=== PATIENT | female | born 1930 | race Caucasian/White ===

== ENCOUNTER 2018-10-02 09:16 | Inpatient (IN) | payer MEDICARE ==
[~2018-10-02] VITALS: Ht 157.5 cm; Wt 44.5 kg
[~2018-10-02 09:16] MED LIST: CIPRO500 MG PO; DEXILANT60 MG PO; NORCO 5-325 TA1 EACH PO; PRILOSEC OTC20 MG PO; PROMETHAZINE HC25 M1 PO; Z.0.ALTACE10 MG PO; Z.0.NORVASC5 MG PO; Z.0.SYNTHROID100 MCG PO
[2018-10-02] MEDS ORDERED: SODIUM CHLORIDE 0.9% 500ML 500 ML IV ONE (11:30)
[2018-10-02] MEDS ORDERED: ONDANSETRON HCL 4 MG ORAL DISINTEGRATING TAB PO ONE (11:50)
[2018-10-02 12:20] LABS: BASOPHILS % 0.3 % (0.0-1.0); EOSINOPHILS % 0.3 % (0.0-6.0); HEMATOCRIT 34.8 % (34.2-44.1); LYMPHOCYTES # (AUTO) 0.5 (1.0-3.2); LYMPHOCYTES % 6.9 % (18.0-39.1); MEAN CORPUSCULAR HEMOGLOBIN 30.7 pg (28-32); MEAN CORPUSCULAR HGB CONC 34.5 g/dL (31-35); MONOCYTES # (AUTO) 0.5 (0.2-0.8); MONOCYTES % 6.2 % (4.4-11.3); NEUTROPHILS # (AUTO) 6.5 (2.1-6.9); NEUTROPHILS % 85.8 % (38.7-80.0); PLATELET COUNT 200 x10e3/uL (140-360); RED BLOOD COUNT 3.91 x10e6/uL (3.6-5.1); RED CELL DISTRIBUTION WIDTH 14.5 % (11.7-14.4)
[2018-10-02 12:24] LABS: PARTIAL THROMBOPLASTIN TIME 26.1 seconds (23.8-35.5)
[2018-10-02 12:31] LABS: INR 0.91; PROTHROMBIN TIME 13.1 seconds (11.9-14.5)
[2018-10-02 12:34] LABS: ALANINE AMINOTRANSFERASE 18 IU/L (0-55); ALBUMIN/GLOBULIN RATIO 1.3 (0.8-2.0); ALKALINE PHOSPHATASE 50 IU/L (40-150); AMYLASE 70 U/L (25-125); ANION GAP 15.9 mmol/L (8-16); BLOOD UREA NITROGEN 12 mg/dL (7-26); BUN/CREATININE RATIO 15 (6-25); CALCIUM 9.8 mg/dL (8.4-10.2); CARBON DIOXIDE 26 mmol/L (22-29); CHLORIDE 83 mmol/L (98-107); CREATINE KINASE 61 IU/L (29-168); CREATININE, SERUM 0.82 mg/dL (0.57-1.11); EST GLOMERULAR FILTRATION RATE > 60 ML/MIN (60-); GLUCOSE 121 mg/dL (74-118); LIPASE 13 U/L (8-78); MAGNESIUM 1.5 MG/DL (1.3-2.1); POTASSIUM 3.9 mmol/L (3.5-5.1); SODIUM 121 mmol/L (136-145)
[2018-10-02 12:48] LABS: LYMPHOCYTES % (MANUAL) 9 % (19-48); MONOCYTES % (MANUAL) 8 % (3.4-9.0); NEUTROPHILS % (MANUAL) 83 % (40-74); PLATELET ESTIMATE ADEQUATE; PLATELET MORPHOLOGY COMMENT NORMAL; RBC MORPHOLOGY COMMENT NORMAL
[2018-10-02 13:57] LABS: BILIRUBIN,URINE NEGATIVE (NEGATIVE); CLARITY,URINE SL CLOUDY (CLEAR); COLOR,URINE YELLOW (YELLOW); KETONES,URINE NEGATIVE (NEGATIVE); LEUKOCYTE ESTERASE ,URINE 1+ (NEGATIVE); NITRITE,URINE NEGATIVE (NEGATIVE); PROTEIN,URINE DIPSTICK NEGATIVE (NEGATIVE); URINE UROBILINOGEN 0.2 mg/dL (0.2 - 1)
[2018-10-02 14:00] LABS: BACTERIA,URINE MANY /HPF; EPITHELIAL CELLS,URINE FEW /LPF; WBC,URINE (MAN) >50 /HPF (0-5)
--- NOTE | 2018-10-02 14:13 | Diagnostic Imaging Report ---
EXAM: CT Abdomen and Pelvis WITH contrast INDICATION: ^nausea, vomiting, diarrhea ^[id number] ^1310 COMPARISON: Gallbladder ultrasound 02/08/2014 TECHNIQUE: Abdomen and pelvis were scanned utilizing a multidetector helical scanner from the lung base to the pubic symphysis after administration of IV contrast. Coronal and sagittal reformations were obtained. Routine protocol was performed. Scan was performed when during portal venous phase. IV CONTRAST: 100 mL of Isovue-370 ORAL CONTRAST: Water RADIATION DOSE: Total DLP: 209.8 mGy*cm Estimated effective dose: (DLP x 0.015 x size factor) mSv COMPLICATIONS: None FINDINGS: LINES and TUBES: None. LOWER THORAX: Mild subsegmental atelectasis in both lung bases. HEPATOBILIARY: No focal hepatic lesions. Mild dilatation of the common bile duct measuring 1.1 cm without calcifications may relate to prior cholecystectomy. No intrahepatic biliary duct dilatation. GALLBLADDER: Cholecystectomy. SPLEEN: No splenomegaly. PANCREAS: No focal masses or ductal dilatation. ADRENALS: No adrenal nodules KIDNEYS/URETERS: Stenosis of the right kidney which is inferior to the lateral aspect of the liver. Kidneys enhance symmetrically. No hydronephrosis. Few bilateral subcentimeter low-attenuation cortical renal cysts. No stones. GI TRACT: No abnormal distention, wall thickening, or evidence of bowel obstruction. Diverticulosis of the sigmoid colon with associated mild wall thickening and surrounding fat stranding suggestive of acute diverticulitis. Appendix is not visualized. PELVIC ORGANS/BLADDER: Unremarkable. LYMPH NODES: No lymphadenopathy. VESSELS: Tortuous abdominal aorta with associated mild scattered atherosclerotic calcifications. No aneurysm. PERITONEUM / RETROPERITONEUM: No free air or fluid. BONES: Levoscoliosis of the lumbar spine. Advanced multilevel degenerative changes of the lumbar spine. SOFT TISSUES: Unremarkable. IMPRESSION: Acute diverticulitis of the sigmoid colon. No abscess or drainable fluid collections. No free air. Recommend follow-up after treatment is completed. Signed by: Dr. Jane Adrian M.D. on 10/02/2018 2:10 PM
[2018-10-02] MEDS ORDERED: CEFEPIME HCL 1 GM VIAL IV SCH (14:30)
--- OUTSIDE RECORDS SUMMARY | 2018-10-02 14:38 | XMS REPORT ---
Author Author [facility] Address Unknown Phone Unavailable Care Team Providers Care Feather Trimmer Name Role Phone Carlo DEL REAL Unavailable Unavailable Problems This patient has no known problems. Allergies, Adverse Reactions, Alerts This patient has no known allergies or adverse reactions. Medications This patient has no known medications. Results Test Description Test Time Test Comments Text Results Atomic Results Result Comments CT ABDOMEN/PELVIS W 2018-10-02 14:03:00 [facility] [address] [address] Patient Name: FELICIA IQBAL MR #: [id number] : 1930 Age/Sex: 88/F Req #: [id number] Adm Physician: Ordered by: TAMEKA ROYAL CERTIFIED LEGAL SECRETARY SPECIALIST Report #: [id number] Location: ER Room/Bed: Procedure: [id number] CT/CT ABDOMEN/PELVIS W Exam Date: 10/02/18 Exam Time: 1310 REPORT STATUS: Signed EXAM: CT Abdomen and Pelvis WITH contrast INDICATIO N: nausea, vomiting, diarrhea [id number] COMPARISON: Gallbladder ultrasound 02/08/2014 TECHNIQUE: Abdomen and pelvis were scanned utilizing a multidetector helical scanner from the lung base to the pubic symphysis after administration of IV contrast. Coronal and sagittal reformations were obtained. Routine protocol was performed. Scan was performed when during portal venous phase. IV CONTRAST: 100 mL of Isovue-370 ORAL CONTRAST: Water RADIATION DOSE: Total DLP: 209.8 mGy*cm Estimated effective dose: (DLP x 0.015 x size factor) mSv COMPLICATIONS: None FINDINGS: LINES and TUBES: None. LOWER THORAX: Mild subsegmental atelectasis in both lung bases. HEPATOBILIARY: No focal hepatic lesions. Mild dilatation of the common bile duct measuring 1.1 cm without calcifications may relate to prior cholecystectomy. No intrahepatic biliary duct dilatation. GALLBLADDER: Cho lecystectomy. SPLEEN: No splenomegaly. PANCREAS: No focal masses or ductal dilatation. ADRENALS: No adrenal nodules KIDNEYS/URETERS: Stenosis of the right kidney which is inferior to the lateral aspect of the liver. Kidneys enhance symmetrically. No hydronephrosis. Few bilateral subcentimeter low-attenuation cortical renal cysts. No stones. GI TRACT: No abnormal distention, wall thickening, or evidence of bowel obstruction. Diverticulosis of the sigmoid colon with associated mild wall thickening and surrounding fat stranding suggestive of acute diverticulitis. Appendix is not visualized. PELVIC ORGANS/BLADDER: Unremarkable. LYMPH NODES: No lymphadenopathy. VESSELS: Tortuous abdominal aorta with associated mild scattered atherosclerotic calcifications. No aneurysm. PERITONEUM / RETROPERITONEUM: No free air or fluid. BONES: Levoscoliosis of the lumbar spine. Advanced multilevel degenerative changes of the lumbar spine. SOFT TISSUES: Unremarkable. IMPRESSION: Acute diverticulitis of the sigmoid colon. No abscess or drainable fluid collections. No free air. Recommend follow-up after treatment is completed. Signed by: Dr. Teo Resendiz M.D. on 10/02/2018 2:10 PM Dictated By: TEO RESENDIZ MD 1410 COPY TO: TAMEKA ROYAL NP
[2018-10-02] MEDS ORDERED: ONDANSETRON HCL INJ 2 MG/ML VIAL IV NR (15:00)
[2018-10-02] MEDS: SODIUM CHLORIDE 0.9% 1000ML 1,000 ML IV SCH (15:04)
[2018-10-02] MEDS: CEFEPIME 1GM/NS 0.9% 50 ML 50 ML IV SCH (15:05)
--- NOTE | 2018-10-02 15:17 | NUR ---
Report received and walking rounds complete. Pt A&O, pt resting in bed and in no apparent distress. Daughter at bedside and to stay overnight. All safety measures ensured, bed alarm on, and pt call more near. Addendum: 10/03/18 at 0737 by Therese Farrell RN note for 1717 not 1516
[2018-10-02 15:49] VITALS: BP 145/63
[2018-10-02 15:54] VITALS: BP 145/63
[2018-10-02 15:59] VITALS: BP 145/63
--- NOTE | 2018-10-02 16:01 | NUR ---
patient received from ER via WC. see admit assess. family at BS. vitals stable with no distress.
[2018-10-02] MEDS ORDERED: IOPAMIDOL 370 MG/ML 200 ML INFUS..BTL INJ ONE (17:12)
[2018-10-02] MEDS ORDERED: SODIUM CHLORIDE 0.9% 50ML 50 ML ONE (17:12)
[2018-10-02] MEDS: METRONIDAZOLE 500MG/NS 100ML IV SCH (18:20)
[2018-10-02 20:00] VITALS: BP 130/69
[2018-10-02 21:00] VITALS: BP 130/69
[2018-10-03] VITALS: BP 126/63
[2018-10-03] MEDS: SODIUM CHLORIDE 0.9% 1000ML 1,000 ML IV SCH (00:23)
[2018-10-03] MEDS: METRONIDAZOLE 500MG/NS 100ML IV SCH ×4 (00:26→18:23)
[2018-10-03] MEDS: CEFEPIME 1GM/NS 0.9% 50 ML 50 ML IV SCH ×2 (03:01→15:50)
[2018-10-03 04:00] VITALS: BP 135/76
[2018-10-03 05:43] LABS: BASOPHILS % 0.4 % (0.0-1.0); EOSINOPHILS # (AUTO) 0.2 (0.0-0.4); EOSINOPHILS % 2.9 % (0.0-6.0); HEMATOCRIT 29.5 % (34.2-44.1); HEMOGLOBIN 10.1 g/dL (12.0-16.0); LYMPHOCYTES # (AUTO) 1.2 (1.0-3.2); LYMPHOCYTES % 21.7 % (18.0-39.1); MEAN CORPUSCULAR HEMOGLOBIN 30.3 pg (28-32); MEAN CORPUSCULAR HGB CONC 34.2 g/dL (31-35); MEAN CORPUSCULAR VOLUME 88.6 fL (81-99); MONOCYTES # (AUTO) 0.6 (0.2-0.8); MONOCYTES % 10.4 % (4.4-11.3); NEUTROPHILS # (AUTO) 3.5 (2.1-6.9); NEUTROPHILS % 64.4 % (38.7-80.0); PLATELET COUNT 188 x10e3/uL (140-360); RED BLOOD COUNT 3.33 x10e6/uL (3.6-5.1); RED CELL DISTRIBUTION WIDTH 14.5 % (11.7-14.4)
[2018-10-03 06:03] LABS: ANION GAP 14.5 mmol/L (8-16); BLOOD UREA NITROGEN 10 mg/dL (7-26); BUN/CREATININE RATIO 12 (6-25); CALCIUM 8.7 mg/dL (8.4-10.2); CARBON DIOXIDE 25 mmol/L (22-29); CHLORIDE 89 mmol/L (98-107); CREATININE, SERUM 0.81 mg/dL (0.57-1.11); EST GLOMERULAR FILTRATION RATE > 60 ML/MIN (60-); GLUCOSE 86 mg/dL (74-118); POTASSIUM 3.5 mmol/L (3.5-5.1); SODIUM 125 mmol/L (136-145)
--- NOTE | 2018-10-03 07:36 | NUR ---
Report given to oncoming nurse
[2018-10-03 08:00] VITALS: BP 134/64
--- NOTE | 2018-10-03 09:07 | NUR ---
CASE MANAGEMENT INITIAL ASSESSMENT Appraiser Timber to bedside to discuss plan of care with patient/family. CM/SW role and care transitions discussed. Anticipated discharge plan discussed along with duration of care. CM/SW discussed patients right to make decisions in care. CM/SW work hours given. Patient lives: IN OWN HOUSE BY SELF Admit/Transfer: VIA ED FROM HOME POA/Emergency contact: DAUGHTER RAÚL [phone] Current/Previous Home Health: NONE PCP/Follow-up Care: AURELIO Current/Previous DME: NONE STATES GOES TO THE GYM 3 TIMES A WEEK AND WORKS OUT WITH THE [employer] Other Services: NA Employment Status: RETIRED Areas of Concerns: NONE Referral Needs: NONE Education Needs: NONE IMM/WORTHINGTON given and signed (if applicable): WORTHINGTON Goal for discharge: RETURN HOME INDEPENDENTLY CM/SW left business card at the bedside with contact information. Name and number was also written on the patients whiteboard. Patient verbalized understanding of discussion. CM will follow-up with ongoing discharge and transition of care needs.
[2018-10-03 12:23] VITALS: BP 139/65
--- NOTE | 2018-10-03 13:02 | Consultation ---
DATE OF CONSULTATION: October 03, 2018 RENAL CONSULTATION HISTORY OF PRESENT ILLNESS: This is a delightful 88-year-old lady who has been admitted with nausea, vomiting and diarrhea. She denies prior history of any diabetes, cancer or malignancy. She has developed some bilateral ankle swelling but that resolved by wearing stockings. She is currently lying supine. No apparent distress. A very thin-built female with poor muscle mass. Labs show sodium 125. Potassium 3.5. Creatinine 0.8. White count 5.4. Hemoglobin 10.1. INR 0.91. LFTs within normal range. SOCIAL HISTORY: Patient does not smoke or drink. FAMILY HISTORY: Significant for hypertension. ALLERGIES: TO SULFA. CURRENT MEDICATIONS: Cefepime, ondansetron, metronidazole. PHYSICAL EXAMINATION: GENERAL: Awake, alert, lying supine. No apparent distress. VITALS: Blood pressure 134/64. Pulse rate 92. Afebrile. Oxygen saturation 96%. HEAD AND NECK: Cornea clear. Oral mucosa moist. LUNGS: Relatively clear. No rales or rhonchi. HEART: S1, S2 audible. A 2/6 to 3/6 ejection systolic murmur heard over left sternal border. ABDOMEN: Otherwise soft, nontender. LOWER EXTREMITY EXAMINATION: Shows no edema. IMPRESSION: Hyponatremia. Etiology most likely appropriate release of ADH secondary to nausea and vomiting. Continue with IV fluid. Monitor patient's chemistries, electrolytes and uric acid osmolality. Send thyroid function tests. Please see orders. Job#: [id number] EV
[2018-10-03] MEDS: ONDANSETRON HCL INJ 2 MG/ML VIAL IV PRN (13:05)
[2018-10-03 14:44] LABS: FREE THYROXINE INDEX 3.7002 (1.4-3.8); THYROID STIMULATING HORMONE 0.09 uIU/mL (0.350-4.940)
[2018-10-03 16:29] VITALS: BP 148/65
[2018-10-03] MEDS: PROMETHAZINE 12.5MG/ NACL 0.9% 12.5 MG/50 ML BAG IV PRN (16:35)
[2018-10-03 20:00] VITALS: BP 148/65
--- NOTE | 2018-10-03 20:00 | NUR ---
INITIAL ASSESSMENT COMPLETE, PT IN BED, ALERT, NO TELE, FAMILY AT BEDSIDE, IV INTACT, VS STABLE, NO DISTRESS NOTED
[2018-10-04] VITALS (11 sets, daily range): BP systolic 121–159; BP diastolic 58–103
[2018-10-04] MEDS: ONDANSETRON HCL INJ 2 MG/ML VIAL IV PRN ×2 (00:25→12:00)
[2018-10-04] MEDS: CEFEPIME 1GM/NS 0.9% 50 ML 50 ML IV SCH (03:00)
[2018-10-04 05:26] LABS: ALANINE AMINOTRANSFERASE 15 IU/L (0-55); ALBUMIN 2.9 g/dL (3.5-5.0); ALBUMIN/GLOBULIN RATIO 1.3 (0.8-2.0); ALKALINE PHOSPHATASE 37 IU/L (40-150); ANION GAP 12.8 mmol/L (8-16); BLOOD UREA NITROGEN 8 mg/dL (7-26); BUN/CREATININE RATIO 10 (6-25); CALCIUM 8.1 mg/dL (8.4-10.2); CARBON DIOXIDE 23 mmol/L (22-29); CHLORIDE 86 mmol/L (98-107); EST GLOMERULAR FILTRATION RATE > 60 ML/MIN (60-); GLUCOSE 92 mg/dL (74-118)
[2018-10-04 05:40] LABS: POTASSIUM 2.8 mmol/L (3.5-5.1); SODIUM 119 mmol/L (136-145)
--- NOTE | 2018-10-04 05:48 | NUR ---
TWO CRITICAL LAB VALUES, SODIUM [address] ELLIS HERE, RELAYED INFORMATION, NEW ORDERS RECEIVED,
[2018-10-04] MEDS: METRONIDAZOLE 500MG/NS 100ML IV SCH ×4 (05:59→18:54)
[2018-10-04] MEDS ORDERED: POTASSIUM CHLORIDE 20MEQ/100ML 200 ML IV ONE ×3 (06:00→17:00)
--- NOTE | 2018-10-04 09:50 | NUR ---
Patient had a syncopal episode, Dr. Bosch made aware, orders given to consult cardiology.
[2018-10-04] MEDS: PROMETHAZINE 12.5MG/ NACL 0.9% 12.5 MG/50 ML BAG IV PRN (10:00)
[2018-10-04] MEDS ORDERED: POTASSIUM CHLORIDE 20 MEQ TAB CR PO NR (10:30)
[2018-10-04] MEDS ORDERED: KCL 20MEQ/.9 SOD CHL 1,000 ML IV SCH (11:15)
[2018-10-04] MEDS ORDERED: MAGNESIUM SULFATE 2GM/50ML 50 ML IV ONE (11:30)
[2018-10-04] MEDS: SODIUM CHLORIDE 1 GM TAB PO SCH ×2 (12:30→21:17)
[2018-10-04] MEDS ORDERED: SODIUM CHLORIDE 3% 200 ML IV ONE (12:45)
--- NOTE | 2018-10-04 12:45 | NUR ---
informed Dr. Adams about need for higher level of care for this patient due to need for hypertonic saline. he states patient does not need icu, but patient needs inpatient (has already given the order). Unfortunately there is not an imcu bed so patient is transferred to icu 191.
--- NOTE | 2018-10-04 14:04 | NUR ---
spoke to dr. salguero again, he states it is ok for ICU, also ok to transfer to IMCU when bed is available, and it is ok to give the hypertonic saline for now thru a quality iv
--- NOTE | 2018-10-04 16:18 | NUR ---
patient is alert, oriented, talking on phone, no neuro changes at this time. iv infusing comfortably
--- NOTE | 2018-10-04 19:15 | NUR ---
RECEIVED REPORT FROM RONDA TOLEDO COMING NURSE, REPORT GIVEN AT PT'S BEDSIDE, PT AAOX3 BREATHING EVEN AND UNLABORED, PT IN PROCESS OF GETTING PICC LINE INSERTION, DENIES PAIN AND DISCOMFORTS AT THIS TIME, DAUGHTER STEPPED OUT THE ROOM AND CAME BK IN, STATED SHE WAS GOING HM, PT INSTRUCTED TO CALL FOR HELP. AND VERBALIZED UNDERSTANDING.
--- NOTE | 2018-10-04 19:47 | Diagnostic Imaging Report ---
EXAMINATION: CHEST X-RAY LINE PLACEMENT COMPARISON: Chest x-ray 02/06/2014 INDICATION: PICC line placement DISCUSSION: Frontal view of the chest obtained at 1927 hours. HEART AND MEDIASTINUM: Stable mild cardiomegaly and aortic ectasia. LINES: Right PICC line terminates in the SVC LUNGS: Diffuse hyperinflation consistent with COPD. No pneumonia or pulmonary edema. There are calcifications throughout the tracheobronchial tree. PLEURA: Blunting of the right lateral costophrenic angle is stable. BONES AND SOFT TISSUES: No focal osseous lesion. The soft tissues are normal. IMPRESSION: 1. Right PICC line terminates in the SVC. No pneumothorax. 2. Stable pulmonary hyperinflation consistent with COPD. Right costophrenic angle blunting may be the result of pleural thickening or small pleural effusion. Signed by: Dr. Neno Smith MD on 10/04/2018 7:44 PM
--- NOTE | 2018-10-04 19:50 | NUR ---
DOCUMENTED OK TO USE PICC LINE BY PICC INSERTION TEAM NURSE.
[2018-10-04] MEDS: KCL 20MEQ/.9 SOD CHL 1,000 ML IV SCH (20:04)
--- NOTE | 2018-10-04 20:04 | Consultation ---
DATE OF CONSULTATION: October 04, 2018 This is an 88-year-old lady, who presented to the hospital because of 2 days' history of left lower quadrant abdominal pain, nausea, vomiting, and diarrhea. Patient denies any bleeding along with his problem. Her workup revealed that she has acute diverticulitis, but also significant hyponatremia. She said that her last colonoscopy was a long time ago. Her other medical problem is otherwise significant for history of thyroid disease, history of disease, previous cholecystectomy, cataract surgery. ALLERGIES: SULFA AND CODEINE. FAMILY HISTORY: Hypertension and heart disease. SOCIAL HISTORY: No alcohol use. CURRENT MEDICATION: Antibiotic and potassium. REVIEW OF SYSTEMS: At this point, she denies any chest pain, denies any shortness of breath. Denies any dysphagia or odynophagia. Denies any dysuria, hematuria, or any kind of syncopal episode. EXAMINATION GENERAL: Awake, alert, appears to be stable, not in acute distress at this point. VITAL SIGNS: Afebrile currently with stable vital signs. HEAD, EYES, EARS, NOSE AND THROAT: Normocephalic and atraumatic. Sclerae are anicteric. NECK: Supple. CARDIAC: Heart sounds regular. LUNGS: Clear. ABDOMEN: Soft. There is mild left lower quadrant tenderness. No rebound or mass. EXTREMITIES: No cyanosis, clubbing. LAB VALUES: Sodium 119, potassium 2.8. Hemoglobin of 10.1, hematocrit 28.5, WBC of 5.48. CAT SCAN: As mentioned before. IMPRESSIONS 1. Acute diverticulitis. 2. Hyponatremia. 3. History of thyroid disease. RECOMMENDATIONS: Continue current care at this point with antibiotic. Follow labs for the hyponatremia and patient will probably need to have colonoscopy later on as an outpatient in about 8-12 weeks. Job#: [id number] CQ cc:MD THADDEUS MERLOS MD
[2018-10-04] MEDS: LORAZEPAM 0.5 MG TAB PO PRN (21:55)
--- NOTE | 2018-10-04 23:00 | NUR ---
RESTING WELL WITH EYES CLOSED, PT EASY TO AWAKEN, DENIES ANY NAUSEA, VOMITING OR DIARRHEA. INFORMED PT TO CALL PRIOR TO GETTING OOB , CALL LIGHT WITHIN REACH, PT VERBALIZED UNDERSTANDING.
[2018-10-05] VITALS (14 sets, daily range): BP systolic 123–157; BP diastolic 61–105
[2018-10-05] MEDS: METRONIDAZOLE 500MG/NS 100ML IV SCH ×5 (01:04→23:34)
[2018-10-05] MEDS: KCL 20MEQ/.9 SOD CHL 1,000 ML IV SCH (03:45)
[2018-10-05] MEDS ORDERED: CEFTRIAXONE SOD 1 GM VIAL IV SCH ×2 (04:30→11:00)
--- NOTE | 2018-10-05 05:00 | NUR ---
ASSISTED UP OOB TO BEDSIDE COMMODEDR SCHNELL HERE TO ASSESS PTS STATUS. DR. ELLIS STATES TO PT THEY HAVE TO WORK ON GETTING (NA) LEVEL UP
[2018-10-05 05:18] LABS: ALANINE AMINOTRANSFERASE 14 IU/L (0-55); ALBUMIN 2.8 g/dL (3.5-5.0); ALBUMIN/GLOBULIN RATIO 1.4 (0.8-2.0); ALKALINE PHOSPHATASE 36 IU/L (40-150); ANION GAP 12.5 mmol/L (8-16); BLOOD UREA NITROGEN 5 mg/dL (7-26); BUN/CREATININE RATIO 7 (6-25); CALCIUM 7.6 mg/dL (8.4-10.2); CARBON DIOXIDE 20 mmol/L (22-29); CHLORIDE 100 mmol/L (98-107); CREATININE, SERUM 0.72 mg/dL (0.57-1.11); EST GLOMERULAR FILTRATION RATE > 60 ML/MIN (60-); GLUCOSE 78 mg/dL (74-118); MAGNESIUM 1.8 MG/DL (1.3-2.1); PHOSPHORUS 1.4 MG/DL (2.3-4.7)
[2018-10-05] MEDS: ONDANSETRON HCL INJ 2 MG/ML VIAL IV PRN (05:25)
[2018-10-05 05:37] LABS: POTASSIUM 5.5 mmol/L (3.5-5.1); SODIUM 127 mmol/L (136-145)
--- NOTE | 2018-10-05 06:15 | NUR ---
PAGED DR. CRONIN TO INFORM HIM OF POTASSIUM LEVEL 5.5, AND SODIUM LEVEL 127, UP FROM 119, IF NO CALL BACK WILL INFORM DAY NURSE TO PLEASE FOLLOW UP WITH DR. CRONIN.
--- NOTE | 2018-10-05 07:02 | NUR ---
DR. LU MADE AWARE OF K+ LEVEL 5.5 AND NA+ LEVEL 127, HE, DR. LU STATED OK, NO NEW ORDERS REPORTED TO RONDA
--- NOTE | 2018-10-05 07:53 | NUR ---
notified dr. salguero of Ala-Septic, orders chem 7 at 9
[2018-10-05 09:33] LABS: BLOOD UREA NITROGEN 5 mg/dL (7-26); BUN/CREATININE RATIO 6 (6-25); CALCIUM 8.5 mg/dL (8.4-10.2); CARBON DIOXIDE 23 mmol/L (22-29); CHLORIDE 95 mmol/L (98-107); CREATININE, SERUM 0.81 mg/dL (0.57-1.11); EST GLOMERULAR FILTRATION RATE > 60 ML/MIN (60-); GLUCOSE 125 mg/dL (74-118); SODIUM 126 mmol/L (136-145)
[2018-10-05] MEDS: SODIUM CHLORIDE 1 GM TAB PO SCH ×3 (09:55→20:47)
[2018-10-05] MEDS ORDERED: CEFTRIAXONE SOD 1 GM/NS 50 ML 50 ML IV SCH (11:00)
--- NOTE | 2018-10-05 13:39 | NUR ---
Nutrition Intervention Note RD Recommendation(s) for Physician: -Rec regular diet as medically appropriate -Rec Ensure Compact w each meal The patient meets criteria for MODERATE protein-calorie malnutrition. Plan of Care: RD following, monitoring for tolerance and adequacy, ONS rec Nutrition reason for involvement: BMI <18.5kg/m2 RD Assessment 10/05 Chart reviewed. 88yo F, who is admitted for 2 days' history of left lower quadrant abdominal pain, nausea, vomiting, and diarrhea. Her workup revealed acute diverticulitis and also significant hyponatremia. Full liquid diet day 2. Visited pt in the room. Daughter on bedside to provide hx. Per daughter, pt doesnt eat or drink enough at home for years. Her weight has been stable at 85lbs for the last 14years since her . Nausea was resolved after meds given. No vomiting episode noted. LBM 10/04, no diarrhea. No complain of chewing or swallowing difficulty. Pt reports feeling better. Entered food preferences into [facility]. Spoke with ISAIAH Tran to order Ensure compact w each meal. Will continue to monitor and follow. Principal Problems/Diagnoses: 1. Acute diverticulitis. 2. Hyponatremia. PMH: HTN, heart disease GI: LBM 10/05 Skin: intact Labs: (10/05) Na 126 L, BUN 5 L, Glucose 125 H Meds: Rocephin, NaCl, Zofran Ht: 62in Wt: 95lb BMI: 17.4 kg/m2 IBW: 110lb Malnutrition Evaluation (10/05/2018) The patient meets criteria for MODERATE protein-calorie malnutrition. Energy intake: <75% of estimated energy requirements for >3 months Weight loss: Stable weight Fat loss: Moderate/ severe some loss of fat over triceps, protrusion of clavicle, hollow around orbital region Muscle loss: Moderate/ Severe protrusion of clavicle and acromion process, depression of temporal Supporting Evidence: Fluid accumulation: Mild Moderate on fluid restriction Functional Status: no changes Nutrition Prescription (Diet Order): full liquid diet Estimated Nutritional Needs: Calories: 1170 1365kcal (30-35kcal/kg/d) Weight used : Actual BW Protein : 59 78g (1.5-2g/kg/d) Weight used: Actual BW Diet Adequacy: Not meeting calorie needs, Not meeting protein needs Diet Education Needs Assessment: Diet education not indicated. Nutrition Care Level: mod Nutrition Diagnosis: Inadequate oral intake related to current medical status as evidenced by PO <25% on full liquid since admission. Goal: Patient will meet 75-100% of estimated needs by follow up Progress: N/A Interventions: General healthful diet, Commercial beverage Monitoring/Evaluation: Total energy intake, Total protein intake, diet, Liquid supplement, Weight change Signed: Billie Mayfield MS, RD, LD
[2018-10-05] MEDS: SODIUM CHLORIDE 0.9% 1000ML 1,000 ML IV SCH (15:32)
--- NOTE | 2018-10-05 16:00 | NUR ---
Educated patient to please not take her home meds. daughter to take home her medications for now. note left on the chart for dr. ocasio address home meds
--- NOTE | 2018-10-05 17:04 | Consultation ---
DATE OF CONSULTATION: CARDIOLOGY CONSULTATION HISTORY OF PRESENT ILLNESS: This is an 88-year-old, pleasant, woman who presented to the emergency department with nausea, vomiting, diarrhea and a syncopal episode. We have been asked to evaluate the patient for her syncope. Evidently, the patient has had recurrent syncopal episodes approximately 18 months apart usually related to episodes of dehydration, nausea, vomiting and diarrhea. The patient was evaluated in [place] and was told she has a "valve problem." Upon arrival here, the patient was found to have severe hyponatremia, dehydration, and diverticulitis. She is currently feeling much better. Denies any chest pain, shortness of breath, palpitations. REVIEW OF SYSTEMS: A 12-point review of systems was conducted and was negative other than as stated above in the HPI. PAST MEDICAL HISTORY: Valvular heart disease, hypertension. FAMILY HISTORY: No premature coronary artery disease or sudden cardiac . SOCIAL HISTORY: No current illicit drug use, alcohol use or tobacco use. ALLERGIES: SULFA AND CODEINE. MEDICATIONS: See medication reconciliation form. PHYSICAL EXAMINATION VITAL SIGNS: Temperature 99, heart rate 102, oxygen saturation 100% on room air, blood pressure 123/68, respirations 14. GENERAL: A well-appearing, elderly woman lying comfortably in bed. HEAD: Normocephalic and atraumatic. EYES: The extraocular muscles are intact. Conjunctivae are clear. NECK: No jugular venous distention. No bruits. CARDIOVASCULAR: Tachycardic, regular rhythm with ectopy. No murmurs appreciated. LUNGS: Clear to auscultation. ABDOMEN: Soft, nontender and nondistended. EXTREMITIES: Thin. No edema. VASCULAR: 2+ pulses. SKIN: Warm, dry and intact. NEUROLOGIC: No focal deficits noted. Cranial nerves are grossly intact. PSYCHIATRIC: Normal mood and affect. CARDIOVASCULAR MEDICATIONS: Reviewed. LABORATORY DATA: Reviewed. IMPRESSION 1. Syncope and collapse. 2. Valvular heart disease. 3. Hyponatremia. 4. Vomiting and diarrhea. 5. Diverticulitis. 6. Urinary tract infection. RECOMMENDATIONS: From a cardiovascular standpoint, the patient appears relatively stable. Her syncope could be related to volume depletion with orthostasis. The patient reportedly had an episode similar in the past and was told that she had a valvular heart issue. Will check a 2-D echocardiogram although I do not hear any obvious sounds of aortic stenosis. Continue all other treatments per primary and critical care teams. Job#: [id number] TAMERA
--- NOTE | 2018-10-05 17:46 | NUR ---
notified dr. ocasio of high hr (150) when ambulating. also about patient taking meds/thyroid meds/labs. he states start metoprolol and hold thyroid meds. informed patient and family of this.
[2018-10-05] MEDS: METOPROLOL TARTRATE 25 MG TAB PO SCH ×2 (18:07→22:00)
--- NOTE | 2018-10-05 19:07 | NUR ---
CANCEL CDIFF TEST PER DR. SAAVEDRA
[2018-10-05] MEDS: LORAZEPAM 0.5 MG TAB PO PRN (21:55)
[2018-10-06] VITALS (15 sets, daily range): BP systolic 103–160; BP diastolic 45–101
[2018-10-06 04:49] LABS: HEMOGLOBIN 9.7 g/dL (12.0-16.0); MEAN CORPUSCULAR HEMOGLOBIN 30.8 pg (28-32); MEAN CORPUSCULAR HGB CONC 33.4 g/dL (31-35); MEAN CORPUSCULAR VOLUME 92.1 fL (81-99); PLATELET COUNT 171 x10e3/uL (140-360); RED BLOOD COUNT 3.15 x10e6/uL (3.6-5.1); RED CELL DISTRIBUTION WIDTH 15.1 % (11.7-14.4)
[2018-10-06 05:15] LABS: BLOOD UREA NITROGEN 6 mg/dL (7-26); BUN/CREATININE RATIO 8 (6-25); CALCIUM 8.4 mg/dL (8.4-10.2); CARBON DIOXIDE 21 mmol/L (22-29); CHLORIDE 98 mmol/L (98-107); CREATININE, SERUM 0.77 mg/dL (0.57-1.11); EST GLOMERULAR FILTRATION RATE > 60 ML/MIN (60-); GLUCOSE 85 mg/dL (74-118); SODIUM 128 mmol/L (136-145)
[2018-10-06] MEDS: SODIUM CHLORIDE 0.9% 1000ML 1,000 ML IV SCH (05:48)
[2018-10-06] MEDS: METOPROLOL TARTRATE 25 MG TAB PO SCH ×2 (05:48→14:16)
[2018-10-06] MEDS: METRONIDAZOLE 500MG/NS 100ML IV SCH ×4 (05:48→23:40)
--- NOTE | 2018-10-06 07:00 | NUR ---
BEDSIDE REPORT RECVD. ASSESSMENT COMPLETED AND RECORDED. VS RECORDED. PT VERBALIZES UNDERSTANDING AND CONSENT WITH CURRENT CARE. PT VERBALIZES DISAPPOINTMENT OF NOT GOING HOME.
[2018-10-06] MEDS: SODIUM CHLORIDE 1 GM TAB PO SCH ×3 (09:00→21:00)
--- NOTE | 2018-10-06 09:08 | NUR ---
PHAN UPDATED ON PT'S REQUEST TO BE DISCHARGED. PT VERBALLY AGITATED AND STATES WANTS TO GO HOME.
[2018-10-06] MEDS: CEFTRIAXONE SOD 1 GM/NS 50 ML 50 ML IV SCH (11:52)
--- NOTE | 2018-10-06 15:00 | NUR ---
DR BROWN MAKING ROUNDS. ECHO REORDERED. REQUEST TO GET EKG WHEN PT IS RAPID AFIB.
--- NOTE | 2018-10-06 16:42 | Progress Note ---
DATE: CARDIOLOGY PROGRESS NOTE SUBJECTIVE: Patient feels better. Denies any chest pain. Feels weak. Denies any palpitations. OBJECTIVE VITAL SIGNS: Temperature is 99.8, heart rate is 102, respirations are 16, blood pressure is 142/100. Oxygen saturation is 99% on room air. GENERAL: Well-appearing elderly woman. CARDIOVASCULAR: Regular rhythm, tachycardic with ectopy. LUNGS: Clear to auscultation. ABDOMEN: Soft, nontender. EXTREMITIES: No edema. MEDICATIONS: Reviewed. LABORATORY DATA: Reviewed. Telemetry monitoring revealed episodes of atrial flutter with 2:1 A-V block with a heart rate 150 and episodes of atrial fibrillation with rapid ventricular response. IMPRESSIONS 1. Syncope. 2. Atrial fibrillation/flutter, paroxysmal. 3. Hyponatremia. 4. Vomiting and diarrhea. 5. Diverticulitis. 6. Urinary tract infection. RECOMMENDATION: Patient was monitored overnight on telemetry. Episodes of atrial flutter and fibrillation were found. Currently patient has sinus tachycardia. Will continue to correct electrolytes, keep potassium greater than 4, magnesium greater than 2. Her thyroid studies showed reduced TSH, so her levothyroxine has been held. Will check a 2D echocardiogram. Will start anticoagulation given the patient is steady on her feet and fairly independent. Eliquis 2.5 b.i.d. Continue to titrate metoprolol for adequate heart rate control. Job#: [id number] WEN
--- NOTE | 2018-10-06 17:10 | NUR ---
DR CRONIN MAKING ROUNDS. ORDERS RECVD AND BEING COMPLETED. UPDATED ON STATUS. ECHO BEING DONE AT THIS TIME. REPORT GIVEN TO GENEVA. PT WILL TRANSFER TO ROOM 114 WITH TELE. CALLED DAUGHTER RAÚL AND LEFT A MESSAGE.
[2018-10-06] MEDS: METOPROLOL TARTRATE 50 MG TAB PO SCH (17:51)
[2018-10-06] MEDS: APIXAB 2.5 MG TABLET PO SCH (17:51)
--- NOTE | 2018-10-06 18:37 | NUR ---
RECEIVED PT TO FLOOR AA0X3. PT IS IN NO S.S OF DISTRESS. FAMILY IS AT BEDSIDE. PT IS ON TELE READING SR. WILL CONTINUE TO CARE FOR PT AT THIS TIME. SIDE RAILSX2, BED WHEELS LOCKED ,CALL LIGHT IS WITHIN EASY REACH, INSTRUCTED TO CALL FOR ASSISTANCE IF NEEDED
[2018-10-06] MEDS: LORAZEPAM 0.5 MG TAB PO PRN (20:32)
[2018-10-06] MEDS ORDERED: SODIUM CHLORIDE 0.9% 250ML 250 ML ONE (23:31)
[2018-10-07] VITALS (8 sets, daily range): BP systolic 124–151; BP diastolic 60–94
[2018-10-07] MEDS: METRONIDAZOLE 500MG/NS 100ML IV SCH ×4 (05:40→23:43)
[2018-10-07 06:07] LABS: BASOPHILS % 0.7 % (0.0-1.0); EOSINOPHILS # (AUTO) 0.3 (0.0-0.4); EOSINOPHILS % 4.9 % (0.0-6.0); HEMATOCRIT 28.1 % (34.2-44.1); HEMOGLOBIN 9.5 g/dL (12.0-16.0); LYMPHOCYTES # (AUTO) 0.8 (1.0-3.2); LYMPHOCYTES % 14.3 % (18.0-39.1); MEAN CORPUSCULAR HGB CONC 33.8 g/dL (31-35); MEAN CORPUSCULAR VOLUME 91.8 fL (81-99); MONOCYTES # (AUTO) 0.5 (0.2-0.8); MONOCYTES % 9.4 % (4.4-11.3); NEUTROPHILS # (AUTO) 4.1 (2.1-6.9); NEUTROPHILS % 70.4 % (38.7-80.0); PLATELET COUNT 169 x10e3/uL (140-360); RED BLOOD COUNT 3.06 x10e6/uL (3.6-5.1); RED CELL DISTRIBUTION WIDTH 15.4 % (11.7-14.4)
[2018-10-07 06:25] LABS: ANION GAP 12.5 mmol/L (8-16); BLOOD UREA NITROGEN 9 mg/dL (7-26); BUN/CREATININE RATIO 12 (6-25); CALCIUM 8.2 mg/dL (8.4-10.2); CARBON DIOXIDE 21 mmol/L (22-29); CHLORIDE 98 mmol/L (98-107); CREATININE, SERUM 0.75 mg/dL (0.57-1.11); EST GLOMERULAR FILTRATION RATE > 60 ML/MIN (60-); GLUCOSE 85 mg/dL (74-118); POTASSIUM 3.5 mmol/L (3.5-5.1); SODIUM 128 mmol/L (136-145)
--- NOTE | 2018-10-07 07:25 | NUR ---
REPORT GIVEN TO ONCOMING NURSE,WALKING ROUNDS MADE.PT RESTING IN BED WITH NO S/S OF DISTRESS NOTED.
[2018-10-07] MEDS: SODIUM CHLORIDE 1 GM TAB PO SCH ×3 (10:05→21:04)
[2018-10-07] MEDS: METOPROLOL TARTRATE 50 MG TAB PO SCH (10:05)
[2018-10-07] MEDS: CEFTRIAXONE SOD 1 GM/NS 50 ML 50 ML IV SCH (10:05)
[2018-10-07] MEDS: APIXAB 2.5 MG TABLET PO SCH ×2 (10:05→17:37)
--- NOTE | 2018-10-07 10:05 | NUR ---
assessment complete no distress noted,updated on poc vocied understanding, denies pain at this time, r picc sl, denies pain at this time, call light in reach will continue to monitor
--- NOTE | 2018-10-07 12:10 | NUR ---
PAGED DR NUÑEZ RE: EKG RESULTS AWAITING CALL BACK
--- NOTE | 2018-10-07 16:25 | Progress Note ---
DATE: October 07, 2018 CARDIOLOGY PROGRESS NOTE SUBJECTIVE: Patient overall feels better. Denies any chest pain, shortness of breath or palpitations. OBJECTIVE VITAL SIGNS: Temperature is 97.8 heart rate ranges from 80s to 100s. Blood pressure is 124/60. Oxygen saturation 99% on 2 liters nasal cannula. GENERAL: Well-appearing, elderly woman in no apparent distress. LUNGS: Diminished breath sounds in bilateral bases. CARDIOVASCULAR: Irregularly irregular with occasional tachycardia. ABDOMEN: Soft, nontender. EXTREMITIES: No edema. CARDIOVASCULAR MEDICATIONS: Reviewed. LABORATORY DATA: Hemoglobin 9.5, creatinine is 0.75. Telemetry monitoring revealed atrial fibrillation/flutter with variable response with episodes of tachycardia. IMPRESSION: 1. Syncope. 2. Hyponatremia. 3. Dehydration. 4. Atrial fibrillation/flutter. 5. Nausea, vomiting and diarrhea. 6. Diverticulitis. 7. Urinary tract infection. PLAN: Patient still has episodes of tachycardia. Will increase metoprolol for better heart rate control. She has been started on Eliquis 2.5 mg b.i.d.. A lower dose is being used due to her advanced age and low body weight. Her 2-D echocardiogram today showed mildly reduced systolic function approximately 45%. She also has moderate tricuspid regurgitation. Otherwise continue current infectious treatment per primary team. Her sodium is coming up and will likely need to be normalized prior to discharge. Job#: [id number]
[2018-10-07] MEDS ORDERED: METOPROLOL TARTRATE 50 MG TAB PO SCH (17:00)
[2018-10-07] MEDS ORDERED: POTASSIUM CHLORIDE 20 MEQ TAB CR PO STA (18:41)
[2018-10-07] MEDS ORDERED: FUROSEMIDE 40 MG TAB PO STA (18:41)
[2018-10-07] MEDS: LORAZEPAM 0.5 MG TAB PO PRN (20:29)
[2018-10-08] VITALS: BP 151/89
[2018-10-08 04:00] VITALS: BP 147/70
[2018-10-08] MEDS: METRONIDAZOLE 500MG/NS 100ML IV SCH ×2 (05:32→12:28)
[2018-10-08] MEDS ORDERED: METOPROLOL TARTRATE INJ 1 MG/ML VIAL IV ONE (06:15)
--- NOTE | 2018-10-08 06:18 | NUR ---
AMIRA AND SPOKE WITH DR HOOVER REPORTED THAT PT IS AFIB WITH HR IN THE 140s.N/O'S RECEIVED.
--- NOTE | 2018-10-08 06:30 | NUR ---
DR OZUNA IN UNIT COVERING FOR DR ELLIS,DR OZUNA NOTIFIED ABOUT PT RUNNING AFIB WITH HR IN THE 140s,ALSO NOTIFIED DR OZUNA OF THE ORDERS RECEIVED FROM DR HOOVER.NO NEW ORDERS RECEIVED FROM DR OZUNA.
--- NOTE | 2018-10-08 06:47 | NUR ---
PT RESTING IN BED.DENIES CHEST PAIN/SOB.RESPIRATIONS EVEN/NON LABORED.PT IS RUNNING AFIB HR 104.
--- NOTE | 2018-10-08 07:04 | Progress Note ---
DATE: SUBJECTIVE: This patient is here for acute diverticulitis, hyponatremia, history of syncope, atrial fibrillation, and flutter. The patient is currently doing well, wants to go home. No complaints. Bowel movements are normal. No abdominal pain. No chest pain. No shortness of breath. MEDICATIONS: She is taking are Flagyl 500 mg q.6 hours, she is on sodium chloride 2 grams 3 times a day, lorazepam 0.5 mg q.6 hours as needed, metoprolol 75 mg twice a day, apixaban 2.5 mg twice a day, Rocephin q.24 hours 1 gram and she is also on Zofran as needed and furosemide 20 mg. OBJECTIVE VITAL SIGNS: Temperature is 98.2, pulse of 100, respiration of 18, and blood pressure is 151/81. HEENT: Normocephalic, atraumatic. Pupils are reactive to light and accommodation. CVS: S1, S2 irregular. ABDOMEN: Nontender, nondistended, soft, and scaphoid. EXTREMITIES: No clubbing, no cyanosis, and no edema. ASSESSMENT: Acute diverticulitis, the patient is currently on antibiotics day 7-8, syncopal episode, episodes of tachycardia, hyponatremia, atrial fibrillation, and urinary tract infection. The patient's microbiology did show E. coli sensitive to Rocephin. PLAN: To continue with Rocephin. The patient has been on sodium chloride tablets 3 times a day for hyponatremia, we will continue that. The patient's tachycardia is being monitored by beta-blockade. The patient is on Eliquis twice a day for atrial fibrillation. As the patient was on levothyroxine which has not been continued, we will recheck her thyroid. For further recommendations and clinical course, we will continue the patient along with other consultants. For any further information, look in the chart. Job#: [id number] PSO
[2018-10-08 07:07] LABS: BASOPHILS # (AUTO) 0.1 (0.0-0.1); BASOPHILS % 0.9 % (0.0-1.0); EOSINOPHILS # (AUTO) 0.4 (0.0-0.4); EOSINOPHILS % 6.5 % (0.0-6.0); HEMATOCRIT 28.9 % (34.2-44.1); HEMOGLOBIN 9.7 g/dL (12.0-16.0); LYMPHOCYTES # (AUTO) 0.9 (1.0-3.2); LYMPHOCYTES % 16.8 % (18.0-39.1); MEAN CORPUSCULAR HEMOGLOBIN 30.7 pg (28-32); MEAN CORPUSCULAR HGB CONC 33.6 g/dL (31-35); MEAN CORPUSCULAR VOLUME 91.5 fL (81-99); MONOCYTES # (AUTO) 0.5 (0.2-0.8); MONOCYTES % 8.3 % (4.4-11.3); NEUTROPHILS # (AUTO) 3.7 (2.1-6.9); NEUTROPHILS % 67.1 % (38.7-80.0); PLATELET COUNT 194 x10e3/uL (140-360); RED BLOOD COUNT 3.16 x10e6/uL (3.6-5.1); RED CELL DISTRIBUTION WIDTH 15.4 % (11.7-14.4)
--- NOTE | 2018-10-08 07:10 | NUR ---
REPORT GIVEN TO ONCOMING NURSE.WALKING ROUNDS MADE.PT RESTING IN BED WITH NO S/S OF DISTRESS.
[2018-10-08 07:18] LABS: ALANINE AMINOTRANSFERASE 15 IU/L (0-55); ALBUMIN 2.8 g/dL (3.5-5.0); ALBUMIN/GLOBULIN RATIO 1.2 (0.8-2.0); ALKALINE PHOSPHATASE 37 IU/L (40-150); ANION GAP 14.6 mmol/L (8-16); BLOOD UREA NITROGEN 11 mg/dL (7-26); BUN/CREATININE RATIO 14 (6-25); CALCIUM 8.3 mg/dL (8.4-10.2); CARBON DIOXIDE 22 mmol/L (22-29); CHLORIDE 100 mmol/L (98-107); CREATININE, SERUM 0.78 mg/dL (0.57-1.11); EST GLOMERULAR FILTRATION RATE > 60 ML/MIN (60-); GLUCOSE 88 mg/dL (74-118); POTASSIUM 3.6 mmol/L (3.5-5.1); SODIUM 133 mmol/L (136-145)
[2018-10-08 07:23] LABS: FREE THYROXINE INDEX 2.6177 (1.4-3.8); THYROID STIMULATING HORMONE 0.485 uIU/mL (0.350-4.940)
[2018-10-08 09:00] VITALS: BP 151/84
[2018-10-08] MEDS: METOPROLOL TARTRATE 50 MG TAB PO SCH ×2 (09:00→16:00)
[2018-10-08] MEDS: APIXAB 2.5 MG TABLET PO SCH ×2 (09:00→16:00)
[2018-10-08] MEDS: SODIUM CHLORIDE 1 GM TAB PO SCH (09:00)
[2018-10-08] MEDS: CEFTRIAXONE SOD 1 GM/NS 50 ML 50 ML IV SCH (09:00)
[2018-10-08] MEDS ORDERED: FUROSEMIDE 20 MG TAB PO SCH (09:00)
--- NOTE | 2018-10-08 09:00 | NUR ---
ASSESSMENT COMPLETE NO DISTRESS NOTED,UPDATED ON POC VOICED UNDERSTANDING, DENIES PAIN AT THIS TIME, R PICC NO SS OF INFILTRATION NOTED, NO OTHER CO VOICED CALL LIGHT IN REACH WILL CONTINUE OT MONITOR
[2018-10-08 09:09] VITALS: BP 151/84
[2018-10-08] MEDS ORDERED: DIGOXIN 0.125 MG TAB PO SCH (12:45)
--- NOTE | 2018-10-08 13:12 | Progress Note ---
DATE: October 08, 2018 CARDIOLOGY PROGRESS NOTE SUBJECTIVE: Patient denies chest pain or shortness of breath. She reports she walked around with her daughter without any symptoms. OBJECTIVE VITAL SIGNS: Temperature 98.3 degrees, pulse 112, respiratory rate 20, blood pressure 151/84, oxygen saturation 97% on room air. GENERAL: Frail, elderly woman, no acute distress, awake and alert. LUNGS: Clear to auscultation bilaterally. No wheezes or crackles. CARDIOVASCULAR: Irregularly irregular. No murmur. Normal S1, S2. ABDOMEN: Soft, nontender. EXTREMITIES: 1+ pitting edema at the ankles. TELEMETRY: Atrial flutter. LABORATORY DATA: WBC 5.5, hemoglobin 9.7, hematocrit 28.9, platelets 194. Sodium 133, potassium 3.6, chloride 100, CO2 of 22, BUN 11, creatinine 0.78. IMPRESSION 1. Syncope. 2. Hyponatremia, improving. 3. Dehydration. 4. Atrial fibrillation/flutter. 5. Urinary tract infection. 6. Diverticulitis. RECOMMENDATIONS: Patient remains in atrial flutter with episodes of rapid ventricular response. Add digoxin. Continue Eliquis for CVA prophylaxis. Echocardiogram demonstrated mildly reduced systolic function with moderate tricuspid regurgitation. Continue current cardiac medications otherwise. Antibiotics per primary service. Thank you for this consult. We will continue to follow. Job#: [id number]
[2018-10-08 13:18] VITALS: BP 188/73
[2018-10-08] MEDS ORDERED: METOPROLOL SUCC50 MG PO (15:04)
[2018-10-08] MEDS ORDERED: FUROSEMIDE40 MG PO (15:05)
[2018-10-08] MEDS ORDERED: ELIQUIS PO (15:06)
== END 2018-10-08 16:10 | disposition home or self-care (01) | DRG 690 ==
LOC: ER 09:16 → ERHOLD 14:35 → IMCU 15:39 → OBSVTOIN 10-04 11:20 → ICU 10-04 13:10 → MED/SURG 10-06 18:21
PROVIDERS: ADMIT Internal Medicine; ATTEND Internal Medicine
DX: N30.01 Acute cystitis with hematuria (principal); K57.32 Diverticulitis of large intestine without perforation or abscess without bleeding; I38 Endocarditis, valve unspecified; E22.2 Syndrome of inappropriate secretion of antidiuretic hormone; E44.0 Moderate protein-calorie malnutrition; Z68.1 Body mass index [BMI] 19.9 or less, adult; K21.9 Gastro-esophageal reflux disease without esophagitis; Z88.5 Allergy status to narcotic agent; Z88.2 Allergy status to sulfonamides; Z82.49 Family history of ischemic heart disease and other diseases of the circulatory system; R55 Syncope and collapse; E86.0 Dehydration; D64.9 Anemia, unspecified; R00.0 Tachycardia, unspecified; I48.0 Paroxysmal atrial fibrillation; B96.20 Unspecified Escherichia coli [E. coli] as the cause of diseases classified elsewhere; I07.1 Rheumatic tricuspid insufficiency
CPT/HCPCS: 36415; 36569; 71045; 74177; 80048; 80053; 81001; 82150; 82550; 82553; 83605; 83690; 83735; 84100; 84436; 84443; 84479; 84484; 84550; 85007; 85025; 85027; 85610; 85730; 87040; 87086; 87186; 93005; 93306; 93970; 99284; G0378; J0692; J0696; J2405; J2550; J3475; J3480; J7030; J7040; J7050; Q9967

== ENCOUNTER 2018-11-23 09:32 | Observation (INO) | payer MEDICARE ==
[~2018-11-23] VITALS: Ht 157.5 cm; Wt 40.8 kg
[~2018-11-23 09:32] MED LIST changes: +ELIQUIS PO; +FUROSEMIDE40 MG PO; +METOPROLOL SUCC50 MG PO
[2018-11-23] MEDS ORDERED: FUROSEMIDE INJ 10 MG/ML 4 ML VIAL IV ONE (11:00)
[2018-11-23 11:13] LABS: BASOPHILS # (AUTO) 0.1 (0.0-0.1); BASOPHILS % 1.2 % (0.0-1.0); EOSINOPHILS # (AUTO) 0.2 (0.0-0.4); EOSINOPHILS % 3.3 % (0.0-6.0); HEMATOCRIT 31.6 % (34.2-44.1); HEMOGLOBIN 10.1 g/dL (12.0-16.0); LYMPHOCYTES # (AUTO) 1.2 (1.0-3.2); LYMPHOCYTES % 19.5 % (18.0-39.1); MEAN CORPUSCULAR VOLUME 93.8 fL (81-99); MONOCYTES # (AUTO) 0.5 (0.2-0.8); MONOCYTES % 8.9 % (4.4-11.3); NEUTROPHILS % 66.8 % (38.7-80.0); PLATELET COUNT 221 x10e3/uL (140-360); RED BLOOD COUNT 3.37 x10e6/uL (3.6-5.1); RED CELL DISTRIBUTION WIDTH 16.1 % (11.7-14.4)
[2018-11-23 11:34] LABS: ALBUMIN 3.6 g/dL (3.5-5.0); ALBUMIN/GLOBULIN RATIO 1.3 (0.8-2.0); CALCIUM 9.4 mg/dL (8.4-10.2); CREATININE, SERUM 1.22 mg/dL (0.57-1.11)
[2018-11-23 11:36] LABS: BILIRUBIN,URINE NEGATIVE (NEGATIVE); CLARITY,URINE HAZY (CLEAR); COLOR,URINE YELLOW (YELLOW); KETONES,URINE NEGATIVE (NEGATIVE); LEUKOCYTE ESTERASE ,URINE TRACE (NEGATIVE); NITRITE,URINE NEGATIVE (NEGATIVE); PROTEIN,URINE DIPSTICK NEGATIVE (NEGATIVE); URINE UROBILINOGEN 0.2 mg/dL (0.2 - 1); WBC,URINE (MAN) 21-50 /HPF (0-5)
[2018-11-23 11:37] LABS: BACTERIA,URINE RARE /HPF; EPITHELIAL CELLS,URINE RARE /LPF; RBC,URINE 0-5 /HPF (0-5); TRANSITIONAL EPI CELLS,URINE RARE
[2018-11-23 11:41] LABS: CREATINE KINASE MB 0.8 ng/mL (0-5.0)
[2018-11-23] MEDS ORDERED: CEFTRIAXONE SOD 1 GM/NS 50 ML 50 ML IV ONE (12:00)
--- NOTE | 2018-11-23 12:08 | Diagnostic Imaging Report ---
EXAMINATION: CHEST SINGLE (PORTABLE) COMPARISON: Chest radiograph 10/04/18. INDICATION: Dehydration, weakness, history of UTI DISCUSSION: LINES: Interval removal of right-sided PICC. LUNGS/PLEURA: Emphysematous changes of the lung. There are hazy and patchy opacities at the bilateral lung bases. Possible small right and trace left pleural effusion. Mild central vascular congestion without pulmonary edema. There are calcifications throughout the tracheobronchial tree. HEART AND MEDIASTINUM: Unchanged mild enlargement of the cardiomediastinal silhouette. Atherosclerotic calcifications of the thoracic aorta. BONES AND SOFT TISSUES: No acute radiographic abnormality. IMPRESSION: Patchy opacities at the lung bases could represent atelectasis or pneumonia in the appropriate clinical context. Possible small right and trace left pleural effusion. Central vascular congestion without pulmonary edema. Signed by: Dr. Flora Munoz MD on 11/23/2018 12:05 PM
[2018-11-23] MEDS ORDERED: ASPIRIN 81 MG CHEW TAB PO ONE (12:15)
--- NOTE | 2018-11-23 18:03 | NUR ---
Recvd patient from ER, A/Ox2-3, assisted her to bed, on Tele, not in any distress, denies any pain, Dr asim Fabian here aware about consult. her caregiver at bed side
[2018-11-23 18:25] VITALS: BP 153/85
[2018-11-23 19:00] VITALS: BP 153/85
[2018-11-23 19:45] LABS: CHOL/HDL RATIO 2.3 (3.0-3.6)
[2018-11-23 20:00] VITALS: BP 179/81
[2018-11-23 20:05] LABS: THYROID STIMULATING HORMONE 2.124 uIU/mL (0.350-4.940)
[2018-11-23 21:33] LABS: CREATINE KINASE MB 0.7 ng/mL (0-5.0)
--- NOTE | 2018-11-23 22:32 | NUR ---
History and Physical PCP cc: leg edema HPI: 88yoF, with hx Systolic CHF lVEF 45% in 09/2018, now developed leg edema, worsening, went to ED. No sob/cp. PMH: HTN, valvular heart ds, PAF, diverticulosis, UTI, syncope, systolic CHF LVEF 45% in 09/2018, Moderate TR, anorexia PSHx: cholecystectomy, hysterectomy Allergies; see emr FH/SH: ; no cigs/illicits/etoh Meds; see MAR ROS: no f/c/s/N/V/D/SUMMERS/vision changes/skin rash/back pain v/s; rev'd PE: tired appearing anicteric ns1s2 mod bs soft nt nd B/L LEG EDEMA, R>L. skin dry n. affect a&ox3; hernandez labs/meds; revd A/P: 88yoF AECHF-systolic B/L pleural effusion DWIGHT due to ATN UTI Underweight state Hypothyroidism PAF PLAN 1.diurese 2.AV blockade 3.IV abx; f/u cx 4.Synthroid 5.AC and pepcid dispo: f/u I/O. Abhay Umaña MD, PhD.
--- NOTE | 2018-11-23 23:33 | Consultation ---
DATE OF CONSULTATION: November 23, 2018 CARDIOLOGY CONSULT NOTE REASON FOR CONSULT: Atrial fibrillation, atrial flutter, lower extremity edema. CHIEF COMPLAINT: Lower extremity edema. HPI: Patient is an 88-year-old female, history of AFib, A-flutter, hypertension, hyperlipidemia, who was recently admitted to the hospital with severe hyponatremia and AFib with RVR as well as a syncopal episode. Full workup was done. Patient was started on medications for rate control of her atrial fibrillation, started on apixaban 2.5 mg twice a day for her atrial fibrillation. She has been okay at home overall except for some hemorrhoidal bleeding due to her anticoagulation for which she was referred to GI. She was noted to have right lower extremity edema by her primary care doctor today and she was sent to the hospital for workup of a possible DVT. She denies any chest pain, shortness of breath, is quite upset, and wants to go home. REVIEW OF SYSTEMS: As above, otherwise negative. PAST MEDICAL HISTORY: 1. AFib. 2. Hypertension. 3. Hyperlipidemia. 4. Hyponatremia. SOCIAL HISTORY: The patient does not smoke, drink, or abuse drugs. FAMILY HISTORY: Noncontributory. OUTPATIENT MEDICATIONS: Reviewed. OBJECTIVE: VITAL SIGNS: Temperature 97.5, pulse 87, respiratory rate 14, blood pressure 174/96, satting 100% on nasal cannula. GENERAL: Elderly thin female, well developed, well nourished, in no acute distress. CARDIOVASCULAR: Regular rate and rhythm. No murmurs, rubs, or gallops. Palpable carotid pulses. Palpable radial pulses. LUNGS: Clear to auscultation bilaterally. ABDOMEN: Soft, nontender, nondistended. NEURO AND PSYCH: Alert and oriented to person, place, and time. Normal affect. INPATIENT MEDICATIONS: Reviewed. LABORATORY DATA: Reviewed. IMAGING DATA: Reviewed. Lower extremity Doppler is pending. ASSESSMENT: 1. History of atrial fibrillation, on anticoagulation. 2. Hypertension. 3. Hyperlipidemia. 4. Lower extremity swelling. PLAN: BNP is elevated. Repeat another echo. Continue home medications for rate control. Continue apixaban 2.5 mg b.i.d. Will await results of lower extremity venous ultrasound. Treatment and workup of possible UTI per primary team. Thank you for this consult. Will continue to follow. Job#: [id number]
[2018-11-24] VITALS (7 sets, daily range): BP systolic 127–157; BP diastolic 60–90
[2018-11-24 05:36] LABS: BASOPHILS # (AUTO) 0.1 (0.0-0.1); BASOPHILS % 1.1 % (0.0-1.0); EOSINOPHILS # (AUTO) 0.3 (0.0-0.4); EOSINOPHILS % 3.7 % (0.0-6.0); HEMATOCRIT 31.3 % (34.2-44.1); HEMOGLOBIN 10.3 g/dL (12.0-16.0); LYMPHOCYTES # (AUTO) 1.1 (1.0-3.2); LYMPHOCYTES % 14.5 % (18.0-39.1); MEAN CORPUSCULAR HEMOGLOBIN 30.1 pg (28-32); MEAN CORPUSCULAR HGB CONC 32.9 g/dL (31-35); MEAN CORPUSCULAR VOLUME 91.5 fL (81-99); MONOCYTES # (AUTO) 0.6 (0.2-0.8); MONOCYTES % 7.6 % (4.4-11.3); NEUTROPHILS # (AUTO) 5.5 (2.1-6.9); NEUTROPHILS % 72.8 % (38.7-80.0); PLATELET COUNT 276 x10e3/uL (140-360); RED BLOOD COUNT 3.42 x10e6/uL (3.6-5.1); RED CELL DISTRIBUTION WIDTH 16.2 % (11.7-14.4)
[2018-11-24 05:53] LABS: ANION GAP 15.7 mmol/L (8-16); CALCIUM 9.1 mg/dL (8.4-10.2); CREATININE, SERUM 1.1 mg/dL (0.57-1.11); POTASSIUM 3.7 mmol/L (3.5-5.1)
[2018-11-24 06:18] LABS: CREATINE KINASE MB 0.6 ng/mL (0-5.0)
[2018-11-24] MEDS: LEVOTHYROXINE SODIUM 100 MCG TAB PO SCH (07:20)
[2018-11-24] MEDS: FAMOTIDINE 20 MG TAB PO SCH ×2 (07:30→17:00)
[2018-11-24] MEDS ORDERED: NON-FORMULARY MEDICATION (Omeprazole Magnesium (Prilosec Otc) 20 MG) PO SCH (07:30)
--- NOTE | 2018-11-24 08:19 | NUR ---
Shift reports and rounds completed.V/S reviewed. Pt stable and no complaints or concerns at this time. Dr Fitzgerald on unit and notified of consult for irregular urinary bladder per CT, Will see.
--- NOTE | 2018-11-24 08:36 | NUR ---
IM- Progress Note O/N; no events; less edema ROS: no f/c/s/N/V/D/SUMMERS/vision changes/skin rash/back pain v/s; rev'd PE: tired appearing anicteric ns1s2 mod bs soft nt nd B/L LEG EDEMA, R>L. skin dry n. affect a&ox3; hernandez labs/meds; revd A/P: 88yoF AECHF-systolic B/L pleural effusion DWIGHT due to ATN UTI Underweight state Hypothyroidism PAF PLAN 1.diurese 2.AV blockade 3.IV abx; f/u cx 4.Synthroid 5.AC and pepcid dispo: f/u I/O. 2/ edema in legs better, renal fn beginning to improve; GFR was >60 in 2018. Keep hospitalized and reassess tomorrow; f/u urine cx. feeling better; Abhay Umaña MD, PhD.
[2018-11-24] MEDS ORDERED: NON-FORMULARY MEDICATION ([Eliquis] 2.5 MG) PO SCH (09:00)
[2018-11-24] MEDS: PANTOPRAZOLE SOD 40 MG TABEC PO SCH (09:30)
[2018-11-24] MEDS: APIXAB 2.5 MG TABLET PO SCH ×2 (10:17→17:00)
[2018-11-24] MEDS: METOPROLOL SUCCINATE 50 MG TAB XL PO SCH (10:17)
[2018-11-24] MEDS: CEFTRIAXONE SOD 1 GM/NS 50 ML 50 ML IV SCH (10:17)
--- NOTE | 2018-11-24 14:51 | NUR ---
SOCIAL WORK INITIAL ASSESSMENT Land Clearer to bedside to discuss plan of care with patient/family. CM/SW role and care transitions discussed. Anticipated discharge plan discussed along with duration of care. CM/SW discussed patients right to make decisions in care. CM/SW work hours given. Patient lives: LIVES IN OWN HOUSE BY SELF Admit/Transfer: VIA ED FROM HOME POA/Emergency contact: DAUGHTER RAÚL LAZARO [phone] PROVIDER IS ROSIE FAITH [phone] Current/Previous Home Health: HAS 40 HOURS PROVIDER PRIVATE PAID PCP/Follow-up Care: THADDEUS BUENO Current/Previous DME: NONE Other Services: NONE Employment Status: RETIRED Areas of Concerns: NONE Referral Needs: NONE Education Needs: NONE IMM/[place] given and signed (if applicable): UPON ADMISSION Goal for discharge: RETURN HOME CM/SW left business card at the bedside with contact information. Name and number was also written on the patients whiteboard. Patient verbalized understanding of discussion. CM will follow-up with ongoing discharge and transition of care needs.
--- NOTE | 2018-11-24 15:46 | NUR ---
Paged Dr Monroy, spoke with Gretchen. Pt requesting update on POC and treatment.
--- NOTE | 2018-11-24 16:31 | NUR ---
Spoke with Dr Monroy, notified that patient requesting update. Dr Monroy will follow up with cargo and container inspector pipeliner to follow up with patient.
--- NOTE | 2018-11-24 17:38 | NUR ---
Called Dr Umaña to notify that Dr Monroy cleared for discharge and follow up out patient tomorrow. Admitted for CHF and UTI, getting rochephin 1 gm iv Q 24 hrs, would like to order ABT for home? Will f/u after reviewing chat.
--- NOTE | 2018-11-24 17:45 | NUR ---
Rounds by jewel bearing broacher and read venous doppler and it was normal, he contacted attending and notified patient cleared for discharge. Spoke with attending and will be in to see patient as urine culture still pending.
--- NOTE | 2018-11-24 18:00 | NUR ---
Nutrition Screen Note RD Recommendation for Physician: Continue diet as ordered Plan of Care: RD following, monitoring for adequacy and tolerance Nutrition reason for involvement: Nutrition Risk Trigger - BMI 16.5 Primary Diagnose(s): CHF, UTI Ht:62 in Wt:90lbs BMI:16.5 kg/m2 IBW:110lbs RD Assessment:(11/24) Initial encounter with pt and Pt is well know from a previous admits. Pt's wt has remained fairly stable although she is underweight with a BMI of 16.5 and has changes in fluid status and edema due to heart failure. Pt has been eating normally and has no C/O N, V, D, nor has any difficulty chewing or swallowing. Current Diet: Cardiac diet Malnutrition Evaluation (11/24/2018) The patient meets criteria for MODERATE protein-calorie malnutrition. Energy intake: Pt is eating normally Weight loss: Pt wt has remained fairly stable and consistent with Dx due to fluid status Fat loss: Moderate Muscle loss: Moderate Supporting Evidence: Fluid accumulation: Moderate Functional Status: no changes Diet Education Needs Assessment: Diet education not indicated. Diet Adequacy: (Meeting calorie needs, Meeting protein needs, Meeting fluid needs, Not meeting calorie needs, Not meeting protein needs) Tolerance: (Tolerating PO Nutrition Care Level: Isaac Moss RD, LD, CNSC
[2018-11-24] MEDS ORDERED: SODIUM CHLORIDE 0.9% 1000ML 1,000 ML IV SCH (19:00)
--- NOTE | 2018-11-24 19:00 | NUR ---
Call attending to clarify about discharge and waiting for urine culture before discharge
--- NOTE | 2018-11-24 19:00 | Progress Note ---
DATE: November 24, 2018 CARDIOLOGY PROGRESS NOTE CHIEF COMPLAINT: Shortness of breath. SUBJECTIVE: Ms. Russell feels much better today. She denies palpitations, shortness of breath or chest pain. OBJECTIVE VITAL SIGNS: Afebrile. Heart rate 84. Blood pressure is 148/70. O2 sat is 98%. CARDIOVASCULAR: Irregularly irregular rate and rhythm. LUNGS: Clear to auscultation bilaterally. ABDOMEN: Soft. Bowel sounds adequate. EXTREMITIES: 1+ edema. Telemetry shows atrial fibrillation. LABS: Reviewed. Ejection fraction is improved with recent ultrasound to 60%. ASSESSMENT 1. Chronic systolic heart failure. 2. Atrial fibrillation. PLAN: Medications are appropriate. Patient is hemodynamically stable. Her symptoms have resolved. Her sodium was 135. She is stable for discharge from the cardiac standpoint. I will see her tomorrow in the office. Discussed with Dr. Abhay Umaña. Job#: [id number]
[2018-11-24] MEDS ORDERED: SODIUM CHLORIDE 0.45% 1,000 ML IV SCH (19:15)
--- NOTE | 2018-11-24 20:26 | NUR ---
Received patient from day nurse, patient is alert and oriented, introduced self to patient, patient denies any pain or distress at this time. Safety and fall precautions maintained at this time, bed in lowest position and locked, needed items beside bed, call more placed close to patient and patient instructed to use it to call nurses for any assistance needed, patient verbalized understanding. patient and family member made aware that discharge will be determined by MD tomorrow due to pending labs, patient is currently stable will continue to monitor.
--- NOTE | 2018-11-24 20:55 | NUR ---
Patient refused tele and pulse ox, and even after education of its importance, MD Umaña made aware and ordered to discontinue them.
[2018-11-25] VITALS: BP 147/71
[2018-11-25 04:00] VITALS: BP 170/98
[2018-11-25 05:32] LABS: BASOPHILS # (AUTO) 0.1 (0.0-0.1); BASOPHILS % 1.7 % (0.0-1.0); EOSINOPHILS # (AUTO) 0.4 (0.0-0.4); EOSINOPHILS % 6.6 % (0.0-6.0); HEMATOCRIT 29.1 % (34.2-44.1); HEMOGLOBIN 9.4 g/dL (12.0-16.0); LYMPHOCYTES # (AUTO) 1.2 (1.0-3.2); LYMPHOCYTES % 23.2 % (18.0-39.1); MEAN CORPUSCULAR HEMOGLOBIN 30.2 pg (28-32); MEAN CORPUSCULAR HGB CONC 32.3 g/dL (31-35); MEAN CORPUSCULAR VOLUME 93.6 fL (81-99); MONOCYTES # (AUTO) 0.5 (0.2-0.8); MONOCYTES % 9.9 % (4.4-11.3); NEUTROPHILS # (AUTO) 3.1 (2.1-6.9); NEUTROPHILS % 58.4 % (38.7-80.0); PLATELET COUNT 215 x10e3/uL (140-360); RED BLOOD COUNT 3.11 x10e6/uL (3.6-5.1); RED CELL DISTRIBUTION WIDTH 16.1 % (11.7-14.4)
[2018-11-25 05:51] LABS: ANION GAP 14.6 mmol/L (8-16); CALCIUM 8.9 mg/dL (8.4-10.2); CREATININE, SERUM 1.07 mg/dL (0.57-1.11); POTASSIUM 3.6 mmol/L (3.5-5.1)
[2018-11-25] MEDS: LEVOTHYROXINE SODIUM 100 MCG TAB PO SCH ×2 (06:00→07:24)
[2018-11-25] MEDS ORDERED: KEFLEX500 MG PO (06:00)
--- NOTE | 2018-11-25 06:39 | NUR ---
Discharge Summary Principal Dx: A/P: 88yoF AECHF-systolic B/L pleural effusion DWIGHT due to ATN UTI Underweight state Hypothyroidism PAF SEcondary Dx: PAF cc and HPI; refer to H&P Hospital Course: A/P: 88yoF AECHF-systolic B/L pleural effusion DWIGHT due to ATN UTI Underweight state Hypothyroidism PAF PLAN 1.diurese 2.AV blockade 3.IV abx; f/u cx 4.Synthroid 5.AC and pepcid dispo: f/u I/O. 2/ edema in legs better, renal fn beginning to improve; GFR was >60 in 2018. Keep hospitalized and reassess tomorrow; f/u urine cx. feeling better; 11/25 fluid status better; will be fine balance needed. d/w daughter at bedside d/c home f/u 1 week and later today condition: improving; d/c time>35mins. Abhay Umaña MD, PhD.
--- NOTE | 2018-11-25 07:06 | NUR ---
Walking rounds done. Patient is awake and alertx3 without any complaints voiced. POC discussed. Per daughter patient will be going home today. Patient instructed to call for assistance as needed and verbalized understanding. bed in lowest position, locked, and call more within reach.
--- NOTE | 2018-11-25 07:28 | NUR ---
patient endorsed to next shift for continuity of care.
--- NOTE | 2018-11-25 07:46 | NUR ---
TOVA SPOKE TO DR. PEARSON REGARDING PATIENT PLAN OF CARE AND INFORMED HIM THAT HIS AND DR. WHARTON DISCHARGE ORDERS WERE CANCELLED. PER DR. PEARSON, PATIENT TO BE DISCHARGED TODAY AND FOLLOW UP WITH HIM AND DR. WHARTON OUTPATIENT. ISAIAH LOREDO, BEDSIDE NURSE NOTIFIED. FACUNDO STATES SHE WILL CALL AND CLARIFY WITH DR. PEARSON. TOVA TO FOLLOW UP.
[2018-11-25 08:05] VITALS: BP 163/98
[2018-11-25] MEDS: CEFTRIAXONE SOD 1 GM/NS 50 ML 50 ML IV SCH (08:20)
[2018-11-25] MEDS: APIXAB 2.5 MG TABLET PO SCH (08:20)
[2018-11-25] MEDS: FAMOTIDINE 20 MG TAB PO SCH (08:20)
[2018-11-25] MEDS: METOPROLOL SUCCINATE 50 MG TAB XL PO SCH (08:20)
[2018-11-25] MEDS: PANTOPRAZOLE SOD 40 MG TABEC PO SCH (08:20)
[2018-11-25 08:48] VITALS: BP 163/76
== END 2018-11-25 09:21 | disposition home or self-care (01) ==
LOC: ER 09:32 → ERHOLD 12:06 → IMCU 17:55
PROVIDERS: ADMIT Internal Medicine; ATTEND Internal Medicine
DX: I11.0 Hypertensive heart disease with heart failure (principal); Z79.01 Long term (current) use of anticoagulants; I48.92 Unspecified atrial flutter; E78.5 Hyperlipidemia, unspecified; I50.23 Acute on chronic systolic (congestive) heart failure; N17.0 Acute kidney failure with tubular necrosis; R63.6 Underweight; E03.9 Hypothyroidism, unspecified; I48.0 Paroxysmal atrial fibrillation; Z79.52 Long term (current) use of systemic steroids; R60.0 Localized edema; N39.0 Urinary tract infection, site not specified; Z68.1 Body mass index [BMI] 19.9 or less, adult
CPT/HCPCS: 36415 ×3; 71045; 80048 ×2; 80053; 80061; 81001; 82550 ×2; 82553 ×2; 83735; 83880; 84443; 84484 ×2; 85025 ×3; 87086; 93005; 93306; 93971; 99284; G0378 ×3; J0696 ×3; J1940; S0164 ×2

== ENCOUNTER → 2019-05-04 | Outpatient (CLI) | payer MEDICARE ==
[~2019-05-04] MED LIST changes: +KEFLEX500 MG PO
--- NOTE | 2019-05-04 11:32 | Diagnostic Imaging Report ---
Exam: Head CT without contrast History: Mild cognitive impairment, on blood thinners. Comparison studies: No prior studies available on the PACS at the time dictation. Technique: Axial images were obtained from the skull base to the vertex. Coronal and sagittal images reconstructed from the axial data. Dose modulation, iterative reconstruction, and/or weight based adjustment of the mA/kV was utilized to reduce the radiation dose to as low as reasonably achievable. Radiation dose: Total DLP: 921 mGy*cm. Estimated effective dose: DLP x 0.015 Intravenous contrast: None Findings: Scalp: No abnormalities. Bones: No fractures, blastic or lytic lesions. Brain sulci: Mildly prompt. Ventricles: Mild compensatory dilatation. No hydrocephalus. Extra-axial spaces: No masses, no fluid collection. Parenchyma: No mass, acute hemorrhage or acute or chronic cortical insults. Confluent hypodensities in the supratentorial white matter are nonspecific but are most compatible with chronic microvascular ischemic changes. Sellar/suprasellar region: No abnormalities. Craniocervical junction: Patent foramen magnum. No Chiari one malformation. Incidental findings: Lens replacements for previous scattered surgery. Atherosclerotic calcifications in the carotid siphons. IMPRESSION: No acute intracranial abnormalities. Chronic findings: 1. Mild generalized parenchymal volume loss. 2. Moderate microvascular ischemic changes Signed by: Dr. James Grier M.D. on 05/04/2019 11:28 AM
== END ==
LOC: CT 10:13
PROVIDERS: ATTEND Family Medicine
DX: G31.84 Mild cognitive impairment of uncertain or unknown etiology (principal)
CPT/HCPCS: 70450

== ENCOUNTER → 2019-06-29 | Outpatient (CLI) | payer MEDICARE ==
--- NOTE | 2019-06-30 06:59 | Diagnostic Imaging Report ---
EXAMINATION: CT of the thoracic spine without contrast. HISTORY: Back pain COMPARISON: None. TECHNIQUE: Multidetector helical axial images were obtained without contrast through the thoracic spine. The images were reconstructed using bone and soft tissue algorithms and were viewed in axial, sagittal and coronal planes. Dose modulation, iterative reconstruction, and/or weight based adjustment of the mA/kV was utilized to reduce the radiation dose to as low as reasonably achievable. FINDINGS: Curvature: Mild increased thoracic kyphosis. Vertebrae: Diffuse decreased bone marrow density. Minimal chronic anterior wedging of the T7 vertebral body. Overall diffuse lower density within the T6 and T7 vertebral body which may be related to focal areas osteopenia versus underlying benign hemangioma. No evidence of fracture, infection, or neoplasm. Discs: Normal thoracic intervertebral disc. Partially visualized degenerative changes at L1-L2. Spinal canal: Unremarkable. Paraspinal soft tissues: Partially visualized cardiomegaly. Small bilateral pleural effusions. Possible enlarged left adrenal gland. Posterior ribs: Unremarkable. IMPRESSION: 1. Mild increased upper thoracic kyphosis. 2. Minimal chronic anterior wedging of the T6 and T7 vertebral bodies. No acute fractures. 3. Partially visualized cardiomegaly, small pleural effusions and possible enlarged left adrenal gland. Abdominal ultrasound is recommended for further evaluation.. Signed by: Dr. Mamta Junior M.D. on 06/30/2019 6:56 AM
== END ==
LOC: CT 16:26
PROVIDERS: ATTEND Family Medicine
DX: M54.14 Radiculopathy, thoracic region (principal)
CPT/HCPCS: 72128